=== PATIENT | female | born 1990 | race Caucasian/White ===

== ENCOUNTER 2018-07-26 05:36 | Day surgery (SDC) | payer OTHER ==
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
[2018-07-26] MEDS ORDERED: ACETAMINOPHEN 500 MG TAB PO ONE (05:44)
[2018-07-26] MEDS ORDERED: PREGABALIN 150 MG CAP PO ONE (05:44)
[2018-07-26] MEDS ORDERED: ceFAZolin 2 GM/DEXTROSE 100 ML IV ONE (05:44)
[2018-07-26] MEDS ORDERED: LR 1,000 ML IV ONE (05:45)
[2018-07-26] MEDS ORDERED: MIDAZOLAM 2 MG/2 ML VIAL IVP ONE (06:57)
--- NOTE | 2018-07-26 06:58 | PDANEPAE ---
ANE Past Medical History - Cardiovascular History Hx Hypertension: No Hx Arrhythmias: No Hx Chest Pain: No Hx Coronary Artery / Peripheral Vascular Disease: No Hx CHF / Valvular Disease: No Hx Palpitations: No - Pulmonary History Hx COPD: No Hx Asthma/Reactive Airway Disease: No Hx Recent Upper Respiratory Infection: No Hx Oxygen in Use at Home: No Hx Sleep Apnea: No Sleep Apnea Screening Result - Last Documented: Negative Pulmonary History Comment: Seasonal allergies, nasal congestion currently - Neurologic History Hx Cerebrovascular Accident: No Hx Seizures: No Hx Dementia: No - Endocrine History Hx Diabetes: No - Renal History Hx Renal Disorders: No - Liver History Hx Hepatic Disorders: No - Neurological & Psychiatric Hx Hx Neurological and Psychiatric Disorders: No - Cancer History Hx Cancer: No - Congenital Disorder History Hx Congenital Disorders: No - GI History Hx Gastrointestinal Disorders: No - Other Health History Other Health History: ANEMIC IN PAST - Chronic Pain History Chronic Pain: Yes (LORAINE HIPS) - Surgical History Prior Surgeries: WISDOM TEETH ANE Review of Systems Review of Systems: - Exercise capacity Exercise capacity: >=4 METS METS (RN): 6 METS ANE Patient History - Allergies Allergies/Adverse Reactions: No Known Allergies Allergy (Unverified 07/07/18 14:46) - Home Medications Home Medications: Bcp 07/07/18 [Last Taken 07/25/18 20:00] - NPO status NPO Status: no food or drink >8 hours NPO Since - Liquids (Date): 07/26/18 NPO Since - Liquids (Time): 04:15 NPO Since - Solids (Date): 07/25/18 NPO Since - Solids (Time): 18:00 - Anes Hx Anes Hx: no prior problems - Smoking Hx Smoking Status: Never smoked - Family Anes Hx Family Hx Anesthesia Complications: NEG ANE Labs/Vital Signs - Vital Signs Vital Signs: reviewed preoperatively; see RN documention for details Blood Pressure: 137/91 Heart Rate: 90 Respiratory Rate: 10 O2 Sat (%): 100 Height: 175.26 cm Weight: 65.771 kg ANE Physical Exam - Airway Neck exam: FROM Mallampati Score: Class 1 Mouth exam: normal dental/mouth exam - Pulmonary Pulmonary: clear to auscultation - Cardiovascular Cardiovascular: regular rate and rhythym - ASA Status ASA Status: I ANE Anesthesia Plan Anesthesia Plan: general endotracheal anesthesia
[2018-07-26] MEDS ORDERED: BUPIVACAINE/EPI 0.25% 30 ML SDV ONE (06:59)
[2018-07-26] MEDS ORDERED: EPINEPHrine 30 MG/30 ML MDV (0.1 MG/0.1 ML) ONE (06:59)
[2018-07-26] MEDS ORDERED: HYDROmorphONE/DILAUDID 2 MG/ML INJ ONE (07:02)
[2018-07-26] MEDS ORDERED: PROPOFOL/EMULSION 500 MG/50 ML BOTTLE IV ONE ×2 (07:02→09:50)
[2018-07-26] MEDS ORDERED: PROPOFOL 200 MG/20 ML VIAL ONE ×2 (07:02→12:43)
[2018-07-26] MEDS ORDERED: fentaNYL 100 MCG/2 ML INJ ONE ×2 (07:02→13:36)
[2018-07-26] MEDS ORDERED: PETROLAT,WHT/MIN OIL/SOD CHL 3.5 GM OPHT.OINT ONE (07:03)
[2018-07-26] MEDS ORDERED: ROCURONIUM 50 MG/5 ML VIAL ONE ×2 (07:12→07:45)
[2018-07-26] MEDS ORDERED: DEXAMETHASONE 4 MG/ML VIAL ONE (07:36)
[2018-07-26] MEDS ORDERED: GLYCOPYRROLATE 0.2 MG/1 ML VIAL ONE (07:40)
[2018-07-26] MEDS ORDERED: ceFAZolin 1 GM VIAL ONE ×2 (11:21→11:22)
[2018-07-26] MEDS ORDERED: ONDANSETRON 4 MG/2 ML VIAL ONE (12:38)
[2018-07-26] MEDS ORDERED: KETOROLAC 30 MG/1 ML SDV ONE (12:38)
[2018-07-26] MEDS ORDERED: METOCLOPRAMIDE 10 MG/2 ML VIAL IVP PRN (12:41)
[2018-07-26] MEDS ORDERED: PROMETHAZINE HCL 25 MG/ML INJ IVP PRN (12:41)
[2018-07-26] MEDS ORDERED: ONDANSETRON 4 MG/2 ML VIAL IVP PRN (12:41)
[2018-07-26] MEDS ORDERED: NALOXONE HCL 0.4 MG/ML INJ IVP PRN (12:41)
[2018-07-26] MEDS ORDERED: oxyCODONE IR 5 MG TAB PO PRN (12:41)
[2018-07-26] MEDS ORDERED: DIAZEPAM 10 MG/2 ML SYR IVP PRN (12:41)
[2018-07-26] MEDS ORDERED: MEPERIDINE 25 MG/0.5 ML AMP IVP PRN (12:41)
[2018-07-26] MEDS ORDERED: ACETAMINOPHEN 500 MG TAB PO PRN (12:41)
[2018-07-26] MEDS ORDERED: ALBUTEROL 3 ML DEYVIAL IH PRN (12:41)
[2018-07-26] MEDS ORDERED: LR 500 ML IV PRN (12:41)
[2018-07-26] MEDS ORDERED: HYDROCODONE/APAP 5/325 TAB PO PRN (12:41)
[2018-07-26] MEDS ORDERED: HYDROmorphONE/DILAUDID 1 MG/ML INJ IVP PRN (12:41)
[2018-07-26] MEDS: fentaNYL 100 MCG/2 ML INJ IVP PRN ×4 (13:38→13:58)
[2018-07-26] MEDS ORDERED: DIAZEPAM 10 MG/2 ML SYR ONE (14:02)
[2018-07-26] MEDS ORDERED: HYDROCODONE/APAP 5/325 TAB ONE (14:23)
--- NOTE | 2018-07-26 14:55 | POSTOPPROG ---
Post Op Note Date of Operation: 07/26/18 Surgeon: Jairo Orozco Advanced Registered Nurse: Dr. Esquivel Anesthesia: GET(General Endotracheal) Pre-op Diagnosis: Bilateral GT Post-op Diagnosis: Bilateral GT Procedure: RIGHT HIP ARTHROSCOPY Inf/Abcess present in the surg proc area at time of surgery?: No
[2018-07-26] MEDS ORDERED: oxyCODONE IR 5 MG TAB ONE (15:22)
[2018-07-26 15:32] VITALS: BP 114/74
--- NOTE | 2018-07-27 12:30 | POSTANESTH ---
Post Anesthetic Evaluation Cardiovascular Status: Normal, Stable Respiratory Status: Normal, Stable Level of Consciousness/Mental Status: Can Participate in Eval Pain Control: Adequate, Prn Tx Ordered Nausea/Vomiting Control: Adequate, Prn Tx Ordered Complications Possibly Related to Anesthesia: None Noted
== END 2018-07-26 15:46 | disposition home or self-care (01) ==
LOC: FSGY 05:36
PROVIDERS: ATTEND Orthopaedic Surgery Sports Medicine
PROC: 0SQ94ZZ Repair Right Hip Joint, Percutaneous Endoscopic Approach (ICD-10-PCS; principal; 2018-07-26 07:15)
DX: M25.851 Other specified joint disorders, right hip (principal)
CPT/HCPCS: C1713; C1762; J0171; J0690; J1100; J1170; J1885; J2250; J2405; J2704; J3010; J3360